=== PATIENT | female | born 1965 | race Two or more races ===

== ENCOUNTER 2021-01-17 14:25 | Emergency (ER) | payer MEDICAID ==
[~2021-01-17] VITALS: Ht 157.5 cm; Wt 71.2 kg
[2021-01-17 15:55] VITALS: BP 157/78
[2021-01-17] MEDS ORDERED: KETOROLAC TROMETHAMINE INJ 30 MG/ML VIAL IM ONE (17:00)
[2021-01-17] MEDS ORDERED: KETOROLAC TROMETHAMINE INJ 30 MG/ML VIAL ONE (17:02)
[2021-01-17] MEDS ORDERED: DICL50TA7 PO (17:16)
== END 2021-01-17 18:05 | disposition home or self-care (01) ==
LOC: ER 14:36
DX: G89.29 Other chronic pain (principal); M54.5 Low back pain; I10 Essential (primary) hypertension
CPT/HCPCS: 72110; 96372; 99283; J1885

== ENCOUNTER 2022-06-07 09:20 | Emergency (ER) | payer MEDICAID ==
[~2022-06-07] VITALS: Ht 157.5 cm; Wt 71.7 kg
[~2022-06-07 09:20] MED LIST: DICL50TA7 PO
[2022-06-07] MEDS ORDERED: NAPR-1192 PO (11:31)
[2022-06-07 11:47] VITALS: BP 145/76
== END 2022-06-07 11:48 | disposition home or self-care (01) ==
LOC: ER 10:19
DX: M17.12 Unilateral primary osteoarthritis, left knee (principal)
CPT/HCPCS: 73564-TC